=== PATIENT | female | born 1985 | race Caucasian/White ===

== ENCOUNTER 2017-06-03 14:13 | Emergency (ER) | payer OTHER ==
--- NOTE | ~2017-06-03 | US85 ---
[facility]. [facility] A Service of [facility] RADIOLOGY TEXT RESULTS PATIENT: DARIELA URRUTIA LOCATION: SED : [birth year] UNIT #: [id number] AGE: [address]: Kaden Galindo MD SEX: F ORDER DR: [id number] [address] [address] [id number] E MR#: [id number] Acc #: [id number] NAME: DARIELA URRUTIA : 1985 SEX: F STUDY DATE/TIME: 06/03/2017 17:03 UNIT: SED ROOM: STUDY DESCRIPTION: [facility] Attending Physician: Kaden Galindo M.D. Ordering Physician: Kaden Galindo M.D. Primary Care Physician: [facility] MEDICAL IMAGING REPORT This report is preliminary unless electronic signature is present. EXAM Lower extremity ultrasound for DVT on the left, 06/03/2017 INDICATION 31-year-old female with left leg pain for 5 days. TECHNIQUE Del Rosario-scale, color Doppler and spectral analysis of the left lower extremity was performed. No comparisons. FINDINGS The examination is negative. No DVT identified in the left lower extremity. IMPRESSION Negative study. No DVT in the left lower extremity. Dictated by... Sung Lovelace M.D. THIS IS AN ELECTRONICALLY VERIFIED REPORT Sung Lovelace M.D. at 06/04/2017 11:03 PM Ben TD: 06/04/2017 03:19 JOB #: [id number] MEDICAL IMAGING REPORT Page 1 of 1
--- NOTE | ~2017-06-03 | CR173 ---
[facility]. [facility] A Service [facility] RADIOLOGY TEXT RESULTS PATIENT: DARIELA URRUTIA LOCATION: SED : 86 UNIT #: [id number] AGE: [address]: Kaden Galindo MD SEX: F ORDER DR: [id number] [place] [id number] E MR#: [id number] Acc #: [id number] NAME: DARIELA URRUTIA : 1985 SEX: F STUDY DATE/TIME: 06/03/2017 17:29 UNIT: SED ROOM: STUDY DESCRIPTION: CR Knee 3 Views Rt Attending Physician: Kaden Galindo M.D. Ordering Physician: Kaden Galindo M.D. Primary Care Physician: [facility] MEDICAL IMAGING REPORT This report is preliminary unless electronic signature is present. EXAM Right knee series, 06/03/2017 INDICATION Bilateral swelling intermittently over the past 5-6 days. Diagnosed with cellulitis at [facility] 5-days ago. No known injury. TECHNIQUE 3 views of the right knee. No comparisons. FINDINGS AP and lateral projection of the knee shows smooth articular anatomy without indication of fracture or dislocation at the major weight-bearing surface of the knee. There is no indication of radiopaque foreign body about the knee surface or joint effusion. IMPRESSION Normal knee. Dictated by... Sung Lovelace M.D. THIS IS AN ELECTRONICALLY VERIFIED REPORT Sung Lovelace M.D. at 06/04/2017 11:04 PM Ben TD: 06/04/2017 03:56 JOB #: [id number] MEDICAL IMAGING REPORT [facility] A [facility] RADIOLOGY TEXT RESULTS PATIENT: DARIELA URRUTIA LOCATION: SED : 86 UNIT #: [id number] AGE: [address]: Kaden Galindo MD SEX: F ORDER DR: Page 1 of 1
--- NOTE | ~2017-06-03 | CR172 ---
[facility]. [facility] A Service of [facility] RADIOLOGY TEXT RESULTS PATIENT: DARIELA URRUTIA LOCATION: SED : [birth year] UNIT #: [id number] AGE: [address]: Kaden Galindo MD SEX: F ORDER DR: [id number] [address] [address] [id number] E MR#: [id number] Acc #: [id number] NAME: DARIELA URRUTIA : 1985 SEX: F STUDY DATE/TIME: 06/03/2017 17:29 UNIT: SED ROOM: STUDY DESCRIPTION: CR Knee 3 Views Lt Attending Physician: Kaden Galindo M.D. Ordering Physician: Kaden Galindo M.D. [facility] MED[facility] IMAGING REPORT This report is preliminary unless electronic signature is present. EXAM Left knee 3 views, 06/03/2017 INDICATIONS 31-year-old female with swelling intermittently that began 5-6 days ago. Diagnosed with cellulitis 5 days ago. No known injury. TECHNIQUE Three views left knee. No comparisons. FINDINGS AP and lateral projection of the knee shows smooth articular anatomy without indication of fracture or dislocation at the major weight-bearing surface of the knee. There is no indication of radiopaque foreign body about the knee surface or joint effusion. IMPRESSION Negative 3-view left knee. Dictated by... Sung Lovelace M.D. THIS IS AN ELECTRONICALLY VERIFIED REPORT Sung Lovelace M.D. at 06/04/2017 11:04 PM BARBARA/jason TD: 06/04/2017 04:06 JOB #: [id number] MEDICAL IMAGING REPORT Page 1 of 1
[~2017-06-03 14:13] MED LIST: ALBUTEROL17 GM INH; BACTROBAN15 GM TOP; BIRTH CONTROL PILL PO; CLINDAMYCIN HC300 MG PO; COLACE; FLEXERIL10 MG PO; IBUPROFEN; KEFLEX500 M1 PO; LEVAQUIN750 M1 PO; MACROBID100 M1 PO; MACROBID100 MG DOB; METHADONE PO; NO MEDICATIONS; VICODIN; VOLTAREN75 MG PO; XOPENEX HFA15 GM IH; ZITHROMAX PO; [UNRECOGNIZED DRUG - OTHER]
[2017-06-03] MEDS ORDERED: CLEOCIN HCL300 M1 PO (14:20)
[2017-06-03 15:21] LABS: BASOPHIL# 0.1 X10e3 (0-0.3); BASOPHIL% 1.1 % (0-2.5); EOSINOPHIL# 0.2 X10e3 (0-0.7); EOSINOPHIL% 1.7 % (0.0-7.0); HEMATOCRIT 39.1 % (35.0-45.0); HEMOGLOBIN 13.5 gm/dL (12.0-16.0); LYMPHOCYTE# 2.6 X10e3 (1.0-3.5); LYMPHOCYTE% 27.6 % (17.0-45.0); MEAN CELL VOLUME 85.8 FL (83-96); MEAN CORPUSCULAR HEMOGLOBIN 29.5 PG (28-34); MEAN CORPUSCULAR HGB CONC 34.4 g/dL (30-36); MEAN PLATELET VOLUME 7.2 FL (6.5-11.5); MONOCYTE# 0.6 X10e3 (0-1.0); MONOCYTE% 6.9 % (3.0-12.0); NEUTROPHIL# 5.8 X10e3 (1.5-7.1); NEUTROPHIL% 62.7 % (40-75); PLATELET COUNT 318 X10e3 (140-420); RED BLOOD COUNT 4.56 X10e (3.90-5.30); RED CELL DISTRIBUTION WIDTH 14.1 % (11.0-15.5); WHITE BLOOD COUNT 9.2 X10e3 (4.0-10.5)
[2017-06-03 15:29] LABS: DIFF IND NO
[2017-06-03 15:38] LABS: ALBUMIN SERUM 4.4 g/dL (3.5-5.0); ALKALINE PHOSPHATASE 43 U/L (32-92); ALT (SGPT) 21 U/L (10-40); AST (SGOT) 20 U/L (10-42); BILIRUBIN,TOTAL 0.6 mg/dL (0.2-2.0); BLOOD UREA NITROGEN 9 mg/dL (9-23); BUN/CREATININE RATIO 12.85; CARBON DIOXIDE 26 mmol/L (22-31); CHLORIDE 102 mmol/L (100-111); CREATININE SERUM 0.7 mg/dL (0.6-1.4); GLOM FILT RATE Estimated 116.3 mL/min (>60); GLUCOSE FASTING 87 mg/dL (70-110); POTASSIUM 4.1 mmol/L (3.5-5.1); PROTEIN TOTAL SERUM 7.7 g/dL (6.0-8.3); SODIUM 135 mmol/L (135-145)
[2017-06-03 15:39] LABS: BILIRUBIN, DIRECT <0.1 mg/dL (0.0-0.2); BILIRUBIN,INDIRECT 0.5 mg/dL (0.0-0.9)
[2017-06-03 15:40] LABS: URINE SOURCE CLEAN CATCH
[2017-06-03 15:41] LABS: URINE APPEARANCE CLEAR; URINE BILIRUBIN NEG (NEG); URINE BLOOD NEG (NEG); URINE COLOR YELLOW; URINE GLUCOSE NEG (NORM); URINE KETONE NEG (NEG); URINE LEUKOCYTE ESTERASE NEG (NEG); URINE NITRATE NEG (NEG); URINE PH 5.5 (5-8); URINE PROTEIN NEG (NEG); URINE SPECIFIC GRAVITY 1.025 (1.003-1.035); URINE UROBILINOGEN 0.2 MG/DL (NORM)
[2017-06-03 15:48] LABS: MICRO INDICATED? NO
[2017-06-03 16:33] LABS: AMPHETAMINE POS (NEG); BARBITURATES NEG (NEG); BENZODIAZEPINES NEG (NEG); COCAINE NEG (NEG); MARIJUANA NEG (NEG); OPIATES NEG (NEG); TRICYCLIC ANTIDEPRESSANTS NEG (NEG); U METHADONE NEG (NEG)
[2017-06-03 16:49] LABS: SEDIMENTATION RATE-SW ONLY 20 mm/hr (0-25)
== END 2017-06-03 18:08 | disposition home or self-care (01) ==
LOC: SED 14:13
PROVIDERS: Emergency Medicine
DX: M70.52 Other bursitis of knee, left knee (principal); L03.116 Cellulitis of left lower limb; J45.909 Unspecified asthma, uncomplicated; F17.210 Nicotine dependence, cigarettes, uncomplicated; Z88.0 Allergy status to penicillin; Z88.2 Allergy status to sulfonamides; Z88.1 Allergy status to other antibiotic agents; Z79.899 Other long term (current) drug therapy
CPT/HCPCS: 29530; 36415; 73562; 80048; 80076; 80307; 81003; 83605; 84703; 85025; 85379; 85651; 86140; 93971; 96361; 96374; 99284; J1885